=== PATIENT | female | born 1990 | race Caucasian/White ===

== ENCOUNTER 2019-06-14 22:07 | Emergency (ER) | payer SELFPAY ==
[2019-06-14 23:05] LABS: A TYPE INFLUENZA AG NEGATIVE (NEGATIVE); B INFLUENZA AG NEGATIVE (NEGATIVE)
--- NOTE | 2019-06-14 23:15 | ER Document Report ---
HPI - HPI Time Seen by Provider: 06/14/19 22:49 Pain Level: 4 Notes: Patient is a 29-year-old female who presents to the ED complaining of nasal congestion/discharge, dry nonproductive cough, feverish, body ache 4 days. Patient states that she is still eating and drinking without difficulties, but does have a decreased p.o. intake. She is still urinating normally having normal bowel movements. Patient has been using some [id number] meds for symptoms. She denies any significant past medical history including cardiopulmonary history and immunocompromised conditions. Patient requesting work note. Denies any current headache, neck pain, sore throat, chest pain, palpitations, syncope, shortness of breath, wheeze, dyspnea, abdominal pain, nausea/vomiting/diarrhea, urinary retention, dysuria, hematuria, or rash. - ROS Systems Reviewed and Negative: Yes All other systems reviewed and negative - REPRODUCTIVE LMP: 05/20/19 Reproductive: DENIES: : Past Medical History - Social History Smoking Status: Current Every Day Smoker Chew tobacco use (# tins/day): No Frequency of alcohol use: None Drug Abuse: Marijuana Family History: Reviewed & Not Pertinent Patient has suicidal ideation: No Patient has homicidal ideation: No Vertical Provider Document - CONSTITUTIONAL Agree With Documented VS: Yes Notes: PHYSICAL EXAMINATION: GENERAL: Well-appearing, well-nourished and in no acute distress. A&Ox4. Answers questions appropriately. Moves comfortably w/o notable distress HEAD: Atraumatic, normocephalic. EYES: Pupils equal round and reactive to light, extraocular movements intact, sclera anicteric, conjunctiva are normal. ENT: EAC clear b/l. TM's intact b/l without erythema, fluid, or perforation. Nares patent and with clear discharge. oropharynx no erythema without exudates. No tonsilar hypertrophy without erythema or exudate. No palatine shift. Uvula midline. No tongue protrusion. No drooling, hoarseness, or airway compromise. Moist mucous membranes. No sinus tenderness. NECK: Normal range of motion, supple without lymphadenopathy. No rigidity/meningismus. LUNGS: Breath sounds clear to auscultation bilaterally and equal. No wheezes rales or rhonchi. No retractions HEART: Regular rate and rhythm without murmurs, rubs, gallops. ABDOMEN: Soft, nontender, nondistended abdomen. No guarding, no rebound. Normal bowel sounds present. No CVA tenderness bilaterally. NEUROLOGICAL: Normal speech, normal gait. PSYCH: Normal mood, normal affect. SKIN: Warm, Dry, normal turgor, no rashes or lesions noted. - INFECTION CONTROL TRAVEL OUTSIDE OF THE [place] IN LAST 30 DAYS: No Course - Re-evaluation Re-evalutation: 06/14/19 Patient is an afebrile, well-hydrated, 29-year-old female who presents to the ED with acute URI, suspect viral. Vitals are acceptable. PE is otherwise unremarkable. No labs or imaging warranted at this time based on H&P. Patient has no significant cardiopulmonary or immunocompromised medical conditions. Patient's lungs are clear to auscultation bilaterally without tachycardia, hypoxia, or tachypnea. Patient is tolerating p.o. without any difficulties. L ow suspicion for any meningitis, sepsis, peritonsillar/pharyngeal abscess, respiratory compromise, severe dehydration, or other emergent systemic condition at this time. Patient is aware this condition can change from initial presentation and she needs to monitor symptoms closely. Conservative measures otherwise for symptoms. Recheck with your PCM in 3-5 days. Return to the ED with any worsening/concerning symptoms otherwise as reviewed in discharge. Patient is in agreement. - Vital Signs Vital signs: Temp Pulse Resp BP Pulse Ox 98.2 F 72 14 124/72 99 06/14/19 22:15 06/14/19 22:12 06/14/19 22:15 06/14/19 22:15 06/14/19 22:15 Discharge - Discharge Clinical Impression: Acute URI Condition: Stable Disposition: HOME, SELF-CARE Instructions: Upper Respiratory Illness ([facility]) Additional Instructions: Maintain adequate fluid intake tylenol/ibuprofen as needed alternating every 3 hours for fever/body ache over the counter cold medication as needed for symptoms Humidified air may help Wash your hands regularly Wear a mask when coughing F/u: with your PCM in 3-5 days for a recheck Return to the ED with any fever, altered mental status/behavior, chest pain, palpitations, syncope, headache, neck pain/stiffness, shortness of breath, chest pains, wheezing, drooling, trouble swallowing/breathing, abdominal pain, n/v/d, rash, or worsening/concerning symptoms otherwise. Forms: Smoking Cessation Education, Return to Work Referrals: [facility] [Provider Group] - Follow up as needed
[2019-06-14 23:56] VITALS: BP 105/69
== END 2019-06-14 23:56 | disposition home or self-care (01) ==
LOC: ER 22:07
DX: J06.9 Acute upper respiratory infection, unspecified (principal); R09.81 Nasal congestion; R09.89 Other specified symptoms and signs involving the circulatory and respiratory systems; R05 Cough; R50.9 Fever, unspecified; M79.10 Myalgia, unspecified site; R63.0 Anorexia; F17.200 Nicotine dependence, unspecified, uncomplicated
CPT/HCPCS: 87070; 87804; 87880; 99283

== ENCOUNTER 2019-06-27 02:20 | Emergency (ER) | payer SELFPAY ==
[2019-06-27 03:17] LABS: APPEARANCE,URINE CLOUDY; BILIRUBIN,URINE NEGATIVE (NEGATIVE); COLOR,URINE AMBER; GLUCOSE, URINE NEGATIVE (NEGATIVE); KETONES,URINE TRACE mg/dL (NEGATIVE); LEUKOCYTE ESTERASE,URINE NEGATIVE (NEGATIVE); NITRITE,URINE NEGATIVE (NEGATIVE); PROTEIN,URINE 100 mg/dL (NEGATIVE); URINE SPECIFIC GRAVITY 1.033
[2019-06-27 03:34] LABS: ALBUMIN 4.5 g/dL (3.5-5.0); ALKALINE PHOSPHATASE 51 U/L (38-126); ANION GAP 9 (5-19); ASPARTATE AMINO TRANSFERASE 22 U/L (14-36); BILIRUBIN,DIRECT 0.2 mg/dL (0.0-0.4); BILIRUBIN,TOTAL 0.5 mg/dL (0.2-1.3); BLOOD UREA NITROGEN 18 mg/dL (7-20); CALCIUM 9.6 mg/dL (8.4-10.2); CARBON DIOXIDE 24 mmol/L (22-30); CHLORIDE 106 mmol/L (98-107); GLUCOSE 86 mg/dL (75-110); POTASSIUM 3.9 mmol/L (3.6-5.0); TOTAL PROTEIN 7.6 g/dL (6.3-8.2)
[2019-06-27 06:32] LABS: ABSOLUTE BASOPHILS # (AUTO) 0.1 10^3/uL (0.0-0.2); ABSOLUTE EOSINOPHILS # (AUTO) 0.2 10^3/uL (0.0-0.6); ABSOLUTE LYMPHOCYTES (AUTO) 2.1 10^3/uL (0.5-4.7); ABSOLUTE MONOCYTES (AUTO) 0.5 10^3/uL (0.1-1.4); ABSOLUTE NEUT (AUTO) 8.1 10^3/uL (1.7-8.2); BASOPHILS % (AUTO) 0.7 % (0-2); EOSINOPHILS % (AUTO) 1.4 % (0-6); HEMATOCRIT 40.9 % (36.0-47.0); HEMOGLOBIN 13.9 g/dL (12.0-15.5); LYMPHOCYTES % (AUTO) 18.9 % (13-45); MEAN CORPUSCULAR HEMOGLOBIN 29.3 pg (27.0-33.4); MEAN CORPUSCULAR VOLUME 86 fl (80-97); MONOCYTES % (AUTO) 4.5 % (3-13); PLATELET COUNT 203 10^3/uL (150-450); RED BLOOD COUNT 4.74 10^6/uL (3.72-5.28); RED CELL DISTRIBUTION WIDTH 13.4 % (11.5-14.0); SEGMENTED NEUTROPHILS % (AUTO) 74.5 % (42-78); TOTAL CELLS COUNTED % (AUTO) 100 %; WHITE BLOOD COUNT 10.9 10^3/uL (4.0-10.5)
[2019-06-27 07:38] VITALS: BP 108/63
== END 2019-06-27 07:49 | disposition left against medical advice (07) ==
LOC: ER 02:20
DX: Z53.21 Procedure and treatment not carried out due to patient leaving prior to being seen by health care provider (principal)
CPT/HCPCS: 36415; 80053; 81001; 83690; 84703; 85025

== ENCOUNTER 2019-07-28 08:08 | Emergency (ER) | payer SELFPAY ==
--- NOTE | 2019-07-28 08:46 | RADIOLOGY REPORT (SQ) ---
EXAM DESCRIPTION: SHOULDER RIGHT 2 OR MORE VIEWS COMPLETED DATE/TIME: 07/28/2019 8:36 am REASON FOR STUDY: Poss Dislocation COMPARISON: None. NUMBER OF VIEWS: Three views. TECHNIQUE: Internal rotation, external rotation, and Y view images acquired of the right shoulder. LIMITATIONS: None. FINDINGS: MINERALIZATION: Normal. BONES: Acute anterior inferior dislocation of the humeral head with respect to the glenoid. There is no discernible fracture. The acromioclavicular joint is in anatomic alignment. JOINTS: As above. VISUALIZED LUNGS AND RIBS: No pneumothorax or rib fracture. SOFT TISSUES: No soft tissue swelling or radiopaque foreign body. OTHER: No other finding. IMPRESSION: Acute anterior inferior dislocation of the humeral head respect to the glenoid. TECHNICAL DOCUMENTATION: JOB ID: [id number] [employer]- All Rights Reserved Reading location - IP/workstation name: [email or web address]
[2019-07-28] MEDS ORDERED: ONDANSETRON HCL INJ/PF 4 MG/2 ML SDV IV ONE (09:35)
[2019-07-28] MEDS ORDERED: ETOMIDATE INJ/PF 20 MG/10 ML SDV IV ONE (09:36)
[2019-07-28] MEDS ORDERED: KETOROLAC TROMETHAMINE INJ/PF 30 MG/1 ML SDV IV ONE (09:43)
--- NOTE | 2019-07-28 09:43 | ER Document Report ---
ED General - General Chief Complaint: Shoulder Injury Stated Complaint: RIGHT ARM PAIN Time Seen by Provider: 07/28/19 09:02 TRAVEL OUTSIDE OF THE [place] IN LAST 30 DAYS: No - HPI Notes: Ms. Ledezma is a 29-year-old female with a chief complaint of right shoulder dislocation which is recurrent. 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 She complains of severe pain in the right shoulder and some tingling of her right hand. Last oral intake was more than 6 hours ago. Patient notes that the shoulder has been dislocated multiple times in the past. Most recent episode was about 3 months ago and she was seen for close reduction in emergency department in [facility]. Patient has a past history of polysubstance abuse. She says she still occasionally smokes marijuana but has not used any "hard drugs" in over a year. She appropriately does not wish to receive any narcotics. Patient has a history of paranoid schizophrenia and multiple personality disorder. She has multiple superficial transverse cuts over her left forearm and says that she cuts herself from time to time and this is "all been taken care of" by her psychiatrist. She says she is compliant with prescribed psychiatric medications. Patient denies any history of problems with anesthesia. - Related Data Allergies/Adverse Reactions: azithromycin [From Zithromax] Allergy (Verified 06/14/19 22:22) Penicillins Allergy (Verified 06/14/19 22:22) Past Medical History - General Information source: Patient, Friend - Social History Smoking Status: Current Every Day Smoker Frequency of alcohol use: None Drug Abuse: Marijuana Family History: Reviewed & Not Pertinent Patient has suicidal ideation: No Patient has homicidal ideation: No Psychiatric Medical History: Reports: Hx Bipolar Disorder, Hx Schizophrenia Past Surgical History: Reports: Hx Cholecystectomy Review of Systems - Review of Systems Notes: Constitutional: Negative for fever. HENT: Negative for sore throat. Eyes: Negative for visual changes. Cardiovascular: Negative for chest pain. Respiratory: Negative for shortness of breath. Gastrointestinal: Negative for abdominal pain, vomiting or diarrhea. Genitourinary: Negative for dysuria. Musculoskeletal: As per HPI. Skin: Negative for rash. Neurological: Negative for headaches, weakness or numbness. 10 point ROS negative except as marked above and in HPI. Physical Exam - Vital signs Vitals: Temp Pulse Resp BP Pulse Ox 97.7 F 89 20 134/73 H 100 07/28/19 08:12 07/28/19 08:12 07/28/19 08:12 07/28/19 08:12 07/28/19 08:12 - Notes Notes: GENERAL: Slender female approximately stated age who appears in moderate distress holding right upper extremity close to her chest with obviously visible anterior dislocation present. SKIN: Good turgor no rashes. Multiple self-inflicted transverse superficial abrasions over volar aspect of left forearm which appear to be of variable ages. HEAD: Normocephalic atraumatic. EYES: PERRLA. EOMI. Conjunctivae and sclerae clear. EARS: CANALS AND TMS CLEAR. NOSE: CLEAR. MOUTH: Moist mucosa. Advanced decay of all the teeth. No stridor or edema. No drooling. NECK: Supple. No masses or thyromegaly. No adenopathy. Carotids 2+ without bruits. No JVD. BACK: Symmetrical without tenderness. CHEST: Respirations unlabored. Breath sounds clear and symmetrical. HEART: Regular rhythm. No murmur gallop or rub. ABDOMEN: Soft nontender without masses, organomegaly or rebound. Bowel sounds normally active. No bruits. GENITALIA: Deferred. EXTREMITIES: Obvious anterior dislocation right shoulder. No edema. No calf tenderness. Cap refill less than 1.5 seconds. Dorsalis pedis and posterior tibial pulses 3+ and symmetrical. NEUROLOGICAL: GCS 15. Alert and oriented x3. Normal gait. Fluent speech. Cranial nerves II through XII intact. Motor function is grossly intact. Patient has some subjective decreased sensation over right forearm and hand. Normal tone. PSYCHIATRIC: Appropriate affect. Course - Re-evaluation Re-evalutation: 07/28/19 10:46 Patient underwent procedural sedation and closed reduction of anterior dislocation right shoulder with no complications noted. Post reduction film is confirmatory of satisfactory reduction. Patient is been placed in a shoulder immobilizer. Outpatient orthopedic referral. - Vital Signs Vital signs: Temp Pulse Resp BP Pulse Ox 97.7 F 63 11 L 118/75 100 07/28/19 08:12 07/28/19 10:16 07/28/19 10:16 07/28/19 10:16 07/28/19 10:16 - Diagnostic Test Radiology reviewed: Reports reviewed Radiology results interpreted by me: 07/28/19 10:46 Initial film shows anterior dislocation without fracture per radiologist Procedures - Conscious Sedation Conscious sedation Time started: 10:08 Time completed: 10:18 Consent obtained: Yes Indication: Anterior dislocation right shoulder Last meal: Greater than 6 hours ago Prior complications: Other - None ASA Classification: Choose one classification Emergent conditions applies.: E. - ASA Classification Pt with a mild systemic disease.: P2. - ASA Classification. Airway Evaluation: Normal anatomy, Loose teeth Mallampati Classification: Class 2 Used during procedure: Suction available, IV access obtained, Pulse ox on pt., claims adjustor on pt. Medications administered: Etomidate Reversal agents: None I personally performed/intraservice time: Sedation, 30 min or less Complications: No - Joint Reduction/Fracture Care Right Shoulder Consent obtained: Yes Conscious sedation: Yes Pre-procedure NV exam: Yes - Mild subjective decreased sensation right wrist/forearm Manipulation comment: Traction/countertraction with appropriate reduction of joint dislocation Post-procedure NV exam: Yes - Normal Post-reduction x-ray: Joint reduced Reduction attempts: 1 Complications: No Discharge - Discharge Clinical Impression: Recurrent anterior dislocation right monica Condition: Stable Disposition: HOME, SELF-CARE Instructions: Shoulder Dislocation ([facility]), Sling as Treatment ([facility]) Prescriptions: Ketorolac Tromethamine [Toradol 10 mg Tablet] 10 mg PO Q6HP PRN 10 Days #20 tablet PRN Reason: Forms: Return to Work Referrals: CHRISTINA ANDRADE DO [ACTIVE STAFF] - Follow up as needed
[2019-07-28 10:56] VITALS: BP 108/70
--- NOTE | 2019-07-28 11:07 | RADIOLOGY REPORT (SQ) ---
EXAM DESCRIPTION: SHOULDER RIGHT 2 OR MORE VIEWS COMPLETED DATE/TIME: 07/28/2019 10:45 am REASON FOR STUDY: post reduction COMPARISON: 07/28/2019. NUMBER OF VIEWS: Two views. TECHNIQUE: AP and scapular Y-views of the right shoulder were obtained. LIMITATIONS: None. FINDINGS: MINERALIZATION: Normal. BONES: The glenohumeral joint is in anatomic alignment post reduction. There is no discernible fract ure. JOINTS: As above. VISUALIZED LUNGS AND RIBS: No pneumothorax or rib fracture. SOFT TISSUES: No radiopaque foreign body. OTHER: No other finding. IMPRESSION: Successful reduction of the previously dislocated right glenohumeral joint. TECHNICAL DOCUMENTATION: JOB ID: [id number] [employer]- All Rights Reserved Reading location - IP/workstation name: [email or web address]
== END 2019-07-28 10:59 | disposition home or self-care (01) ==
LOC: ER 08:08
DX: M24.411 Recurrent dislocation, right shoulder (principal); R20.2 Paresthesia of skin; X58.XXXA Exposure to other specified factors, initial encounter; F17.200 Nicotine dependence, unspecified, uncomplicated; Z88.3 Allergy status to other anti-infective agents; Z88.0 Allergy status to penicillin; Z90.49 Acquired absence of other specified parts of digestive tract
CPT/HCPCS: 23650; 99283; 99152; 96374; 96375; 73030; L3650; J1885; J2405; J3490

== ENCOUNTER 2019-08-16 03:41 | Emergency (ER) | payer SELFPAY ==
--- NOTE | 2019-08-16 06:29 | ER Document Report ---
ED General - General Chief Complaint: Medication Refill Stated Complaint: medication refill Time Seen by Provider: 08/16/19 06:22 Mode of Arrival: Ambulatory TRAVEL OUTSIDE OF THE [place] IN LAST 30 DAYS: No - HPI Notes: Patient is a 29-year-old female presenting requesting a refill on her gabapentin. Patient states she takes 300 mg twice daily. Patient states she does not currently have a regular doctor to write her a refill on her medication. Patient has no other complaints. - Related Data Allergies/Adverse Reactions: azithromycin [From Zithromax] Allergy (Verified 06/14/19 22:22) Penicillins Allergy (Verified 06/14/19 22:22) Home Medications: gabapentin 300 mg bid (pt ran out) Past Medical History - General Information source: Patient - Social History Smoking Status: Current Every Day Smoker Family History: Reviewed & Not Pertinent Patient has suicidal ideation: No Patient has homicidal ideation: No Psychiatric Medical History: Reports: Hx Bipolar Disorder, Hx Schizophrenia Past Surgical History: Reports: Hx Cholecystectomy Review of Systems - Review of Systems Constitutional: No symptoms reported EENT: No symptoms reported Cardiovascular: No symptoms reported Respiratory: No symptoms reported Gastrointestinal: No symptoms reported Genitourinary: No symptoms reported Female Genitourinary: No symptoms reported Musculoskeletal: No symptoms reported Skin: No symptoms reported Hematologic/Lymphatic: No symptoms reported Neurological/Psychological: No symptoms reported -: Yes All other systems reviewed and negative Physical Exam - Vital signs Vitals: Temp Pulse Resp BP Pulse Ox 98.0 F 92 16 100/68 100 08/16/19 03:55 08/16/19 03:55 08/16/19 03:55 08/16/19 03:55 08/16/19 03:55 - Notes Notes: PHYSICAL EXAMINATION: GENERAL: Well-appearing, well-nourished and in no acute distress. HEAD: Atraumatic, normocephalic. EYES: Pupils equal round and reactive to light, extraocular movements intact, sclera anicteric, conjunctiva are normal. ENT: nares patent, oropharynx clear without exudates. Moist mucous membranes. NECK: Normal range of motion, supple without lymphadenopathy LUNGS: Breath sounds clear to auscultation bilaterally and equal. No wheezes rales or rhonchi. HEART: Regular rate and rhythm without murmurs ABDOMEN: Soft, nontender, normoactive bowel sounds. No guarding, no rebound. No masses appreciated. EXTREMITIES: No deformities. No pitting or edema. No cyanosis. NEUROLOGICAL: No focal neurological deficits. Moves all extremities spontaneously and on command. PSYCH: Normal mood, normal affect. SKIN: Warm, Dry, normal turgor, no rashes or lesions noted. Course - Vital Signs Vital signs: Temp Pulse Resp BP Pulse Ox 98.0 F 92 16 100/68 100 08/16/19 03:55 08/16/19 03:55 08/16/19 03:55 08/16/19 03:55 08/16/19 03:55 Discharge - Discharge Clinical Impression: Encounter for medication refill Condition: Good Disposition: HOME, SELF-CARE Additional Instructions: Return to the Emergency Department without delay if any worse. HOME CARE INSTRUCTIONS & INFORMATION: Thank you for choosing us for your medical needs. We hope you're satisfied with the care you received. After you leave, you must properly care for your problem and, at the same time, observe its progress. Any condition can change. Some illnesses can change rapidly over hours or days. If your condition worsens, return to the Emergency Department or see your physician promptly. ABOUT YOUR X-RAYS AND EKG'S: If you had an EKG or X-rays taken, they have been read by the Emergency Physician. The X-rays and EKG's will also be read by a Radiologist or Sawyer Helper within 24 hours. If discrepancies are noted, you will be notified by telephone. Please be certain the ED has a correct telephone number & address where you can be reached. Also, realize that some fractures or abnormalities do not show up on initial X-rays. If your symptoms continue, see your physician. ABOUT YOUR LABORATORY TEST: If you had laboratory tests, the results have been reviewed by the Emergency Physician. Some test results (for example cultures) may not be available for several days. You will be contacted if any test result shows you need additional treatment. Please be certain the ED has a correct telephone number and address where you can be reached. ABOUT YOUR MEDICATIONS: You will receive instructions on how to take your medicine on the prescription label you receive. Additional information may be provided by the Pharmacy. If you have questions afterwards, call the ED for clarification or further instructions. Some prescribed medications may cause drowsiness. Do not perform tasks such as driving a car or operating machinery without consulting your Pharmacist. If you feel you need a refill of pain medication, your condition will need re-evaluation. Please do not call for a refill of any medication. ABOUT YOUR SIGNATURE: Signature of this document acknowledges to followin. Understanding that you received emergency treatment and that you may be released before al medical problems are known or treated. Please be certain the ED has a correct phone number & address where you can be reached. 2. Acknowledgement that you will arrange for follow-up care as recommended. 3. Authorization for the Emergency Physician to provide information to your follow-up Physician in order to maximize your care. AT ANY TIME, IF YOUR SYMPTOMS CHANGE SIGNIFICANTLY OR WORSEN OR YOU DEVELOP NEW SYMPTOMS, RETURN TO THE EMERGENCY DEPARTMENT IMMEDIATELY FOR RE-EVALUATION. OUR GOAL IS TO PROVIDE EXCELLENT MEDICAL CARE! WE HOPE THAT WE HAVE MET YOUR EXPECTATIONS DURING YOUR EMERGENCY DEPARTMENT VISIT AND THAT YOU FEEL YOU HAVE RECEIVED EXCELLENT CARE! Prescriptions: Gabapentin [Neurontin 300 mg Capsule] 300 mg PO BID 7 Days #14 cap Referrals: LAWRENCE CASTAÑEDA MD [HONORARY] - Follow up as needed
[2019-08-16 06:34] VITALS: BP 103/64
== END 2019-08-16 06:32 | disposition home or self-care (01) ==
LOC: ER 03:41
DX: Z76.0 Encounter for issue of repeat prescription (principal); Z79.899 Other long term (current) drug therapy; F17.200 Nicotine dependence, unspecified, uncomplicated
CPT/HCPCS: 99281

== ENCOUNTER 2019-09-03 05:20 | Emergency (ER) | payer SELFPAY ==
[2019-09-03 05:34] VITALS: BP 118/79
== END 2019-09-03 07:00 | disposition left against medical advice (07) ==
LOC: ER 05:20
DX: Z53.21 Procedure and treatment not carried out due to patient leaving prior to being seen by health care provider (principal); M79.603 Pain in arm, unspecified

== ENCOUNTER 2019-09-08 09:39 | Emergency (ER) | payer OTHER ==
[2019-09-08] MEDS ORDERED: SILVER SULFADIAZINE 1% CREAM 50 GM TP ONE (10:41)
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
[2019-09-08 11:06] VITALS: BP 125/60
== END 2019-09-08 11:07 | disposition home or self-care (01) ==
LOC: ER 09:39
DX: T22.012D Burn of unspecified degree of left forearm, subsequent encounter (principal); T22.011D Burn of unspecified degree of right forearm, subsequent encounter; X08.8XXD Exposure to other specified smoke, fire and flames, subsequent encounter; Y99.0 Civilian activity done for income or pay; F17.200 Nicotine dependence, unspecified, uncomplicated; Z90.49 Acquired absence of other specified parts of digestive tract
CPT/HCPCS: 99283; J3490